=== PATIENT | male | born 1940 | race Caucasian/White ===

== ENCOUNTER 2020-05-10 08:33 | Inpatient (IN) | payer OTHER ==
[~2020-05-10] VITALS: Ht 177.8 cm; Wt 96.0 kg
[2020-05-10] VITALS (8 sets, daily range): BP systolic 108–146; BP diastolic 56–65
[~2020-05-10 08:33] MED LIST: ASPI81CH43 PO; CLON0.2D6 PO; FAMO20TA10 PO; FERR27TA2 PO; FURO1TAB33 PO; IPRA0.03; LEVA1NEB5 IN; LEVA1NEB5 NEB; LORA0.5T20 PO; LOSA25TA2 PO; LOSA50TA7 PO; LOVA20TA4 PO; MONT10TA23 PO; POTA10TA51 PO; PRED1PAK9 PO; RANO500T PO; THEO1CAP4 PO; TIOTCAP IN
[2020-05-10] MEDS ORDERED: PANTOPRAZOLE 40 MG/10 ML VIAL INJ IV ONE ×2 (09:45→19:30)
[2020-05-10 11:02] LABS: Basophils # (auto) 0 10 ^3/uL (0-0.2); Eosinophils # (auto) 0 10 ^3/uL (0-0.8); Eosinophils % (auto) 0.5 % (0.0-7.0); Lymphocytes # (auto) 0.5 10 ^3/uL (0.4-5.4); Monocytes # (auto) 0.5 10 ^3/uL (0-1.3); Platelet Count (auto) 276 10^3/uL (140-450)
[2020-05-10 11:05] LABS: Basophils % (auto) 0.5 % (0.0-2.0); Hematocrit 18.6 % (41.0-53.0); Lymphocytes % (auto) 7.7 % (10.0-50.0); Mean Corpuscular Hemoglobin 30.1 pg (28.0-32.0); Mean Corpuscular Hgb Conc. 30.9 g/dL (32.0-36.0); Mean Corpuscular Volume 97.3 fL (80.0-100.0); Monocytes % (auto) 7.9 % (0.0-12.0); Neutrophils # (auto) 5.4 10 ^3/uL (1.6-8.6); Neutrophils % (auto) 83.4 % (37.0-80.0); Nucleated Red Blood Cells % 1.3 %; Red Blood Cells 1.91 10^6/uL (4.5-5.90); Red Cell Distribution Width 19.6 % (11.8-14.3)
[2020-05-10 11:19] LABS: White Blood Cell 6.3 10^3/uL (4.4-10.8)
[2020-05-10 11:20] LABS: Hemoglobin 5.8 g/dL (13.5-17.5)
[2020-05-10 11:31] LABS: INR 0.99 (0.9-1.15); Partial Thromboplastin Time 28.3 sec (23.0-31.2)
[2020-05-10 11:36] LABS: Albumin 2.6 g/dL (3.4-5.0); Calcium 7.9 mg/dL (8.5-10.1); Magnesium 2.2 mg/dL (1.6-2.6)
[2020-05-10 11:49] LABS: BUN/Creatinine Ratio 22.9; Bilirubin, Total 0.2 mg/dL (0.2-1.0); Total Protein 5.1 g/dL (6.4-8.2)
[2020-05-10 13:37] LABS: Urine Bacteria NONE SEEN /hpf (None Seen); Urine Blood Negative /uL (Negative); Urine Hyaline Cast FEW /lpf (0 - 2); Urine Specific Gravity 1.017 (1.001-1.035); Urine WBC 2 /hpf (0 - 3)
[2020-05-10] MEDS ORDERED: NITROGLYCERIN 0.4 MG SL TAB SL PRN (18:00)
[2020-05-10] MEDS ORDERED: MORPHINE SULF INJ 2 MG/ML SYRINGE 1ML IV PRN ×6 (18:00→20:30)
[2020-05-10] MEDS ORDERED: LEVALBUTEROL HCL 1.25 MG/3 ML NEB NEB ONE (18:15)
[2020-05-10] MEDS ORDERED: IPRATROPIUM BROM 0.5 MG/2.5ML INH SOL NEB ONE (18:15)
[2020-05-10] MEDS ORDERED: IPRATROPIUM BROM 0.5 MG/2.5ML INH SOL NEB SCH ×3 (18:30→22:00)
[2020-05-10] MEDS ORDERED: POTASSIUM CHL 20MEQ/100ML 100 ML IV ONE ×2 (19:00→20:30)
[2020-05-10] MEDS ORDERED: LACTULOSE 20Gm/30ML SOLN PO PRN (19:00)
[2020-05-10] MEDS ORDERED: methylPREDNISolone SOD SUCC 125 MG/2 ML VL IV ONE (19:00)
[2020-05-10] MEDS ORDERED: ONDANSETRON HCL 4 MG/2 ML VIAL IV PRN ×2 (19:00→20:30)
[2020-05-10 19:06] LABS: Hematocrit 22.8 % (41.0-53.0); Hemoglobin 7.4 g/dL (13.5-17.5)
[2020-05-10] MEDS ORDERED: levoFLOXacin 500MG 100 ML IV ONE ×2 (19:30→20:30)
[2020-05-10] MEDS ORDERED: FUROSEMIDE 40 MG/4 ML VIAL IV ONE (19:30)
[2020-05-10] MEDS ORDERED: LEVALBUTEROL HCL 1.25 MG/3 ML NEB NEB SCH (22:00)
[2020-05-10] MEDS ORDERED: metroNIDAZOLE 500MG/100ML 100 ML IV SCH (22:00)
[2020-05-10] MEDS: PANTOPRAZOLE 40 MG/10 ML VIAL INJ IV SCH (22:00)
[2020-05-10] MEDS: metroNIDAZOLE 500MG/100ML 100 ML IV SCH (22:09)
[2020-05-10] MEDS: IPRATROPIUM BROM 0.5 MG/2.5ML INH SOL NEB SCH (22:13)
[2020-05-10] MEDS: LEVALBUTEROL HCL 1.25 MG/3 ML NEB NEB SCH (22:13)
[2020-05-11] MEDS ORDERED: LEVALBUTEROL HCL 1.25 MG/3 ML NEB NEB SCH
[2020-05-11] MEDS ORDERED: methylPREDNISolone SOD SUCC 40 MG/ML VL IV SCH
[2020-05-11] MEDS: methylPREDNISolone SOD SUCC 40 MG/ML VL IV SCH ×4 (00:10→17:36)
[2020-05-11 00:31] LABS: Hemoglobin 8.2 g/dL (13.5-17.5)
[2020-05-11 00:32] LABS: Hematocrit 25.4 % (41.0-53.0)
[2020-05-11] MEDS: metroNIDAZOLE 500MG/100ML 100 ML IV SCH ×3 (05:51→21:57)
[2020-05-11] MEDS: LEVALBUTEROL HCL 1.25 MG/3 ML NEB NEB SCH ×5 (06:00→23:01)
[2020-05-11] MEDS: IPRATROPIUM BROM 0.5 MG/2.5ML INH SOL NEB SCH ×5 (06:00→23:01)
[2020-05-11 07:19] LABS: Basophils # (auto) 0 10 ^3/uL (0-0.2); Basophils % (auto) 0.2 % (0.0-2.0); Eosinophils # (auto) 0 10 ^3/uL (0-0.8); Hemoglobin 7.7 g/dL (13.5-17.5); Lymphocytes # (auto) 0.2 10 ^3/uL (0.4-5.4); Mean Corpuscular Hemoglobin 30.4 pg (28.0-32.0); Monocytes # (auto) 0 10 ^3/uL (0-1.3); Red Blood Cells 2.55 10^6/uL (4.5-5.90)
[2020-05-11 07:23] LABS: Lymphocytes % (auto) 5.2 % (10.0-50.0); Mean Corpuscular Hgb Conc. 32.3 g/dL (32.0-36.0); Mean Corpuscular Volume 94.1 fL (80.0-100.0); Monocytes % (auto) 0.7 % (0.0-12.0); Neutrophils # (auto) 4.4 10 ^3/uL (1.6-8.6); Neutrophils % (auto) 93.9 % (37.0-80.0); Nucleated Red Blood Cells % 0.8 %; Platelet Count (auto) 260 10^3/uL (140-450); Red Cell Distribution Width 19.4 % (11.8-14.3); White Blood Cell 4.7 10^3/uL (4.4-10.8)
[2020-05-11 07:41] LABS: Potassium 4.5 mmol/L (3.5-5.1)
[2020-05-11 07:49] LABS: Albumin 2.6 g/dL (3.4-5.0); BUN/Creatinine Ratio 24.2; Bilirubin, Total 0.2 mg/dL (0.2-1.0); Total Protein 5.4 g/dL (6.4-8.2)
[2020-05-11] MEDS: levoFLOXacin 500MG 100 ML IV SCH (09:49)
[2020-05-11] MEDS: PANTOPRAZOLE 40 MG/10 ML VIAL INJ IV SCH ×2 (09:49→21:57)
[2020-05-11] MEDS ORDERED: levoFLOXacin 500MG 100 ML IV SCH (10:00)
[2020-05-11] MEDS ORDERED: PANTOPRAZOLE 40 MG/10 ML VIAL INJ IV SCH (10:00)
[2020-05-11 12:05] LABS: Hematocrit 23.7 % (41.0-53.0); Hemoglobin 7.6 g/dL (13.5-17.5)
[2020-05-11] MEDS ORDERED: FUROSEMIDE 40 MG/4 ML VIAL IV ONE (13:30)
[2020-05-11] MEDS ORDERED: LOSARTAN POTASSIUM 50 MG TAB PO ONE (13:45)
[2020-05-11] MEDS ORDERED: RANOLAZINE ER 500 MG TAB PO ONE (13:45)
[2020-05-11 16:00] VITALS: BP 135/65
[2020-05-11] MEDS: RANOLAZINE ER 500 MG TAB PO SCH (21:58)
[2020-05-11] MEDS: ATORVASTATIN 20 MG TAB PO SCH (21:58)
[2020-05-11] MEDS: MONTELUKAST SODIUM 10 MG TAB PO SCH (21:58)
[2020-05-11 22:00] VITALS: BP 132/61
[2020-05-12] VITALS (8 sets, daily range): BP systolic 122–140; BP diastolic 63–70
[2020-05-12] MEDS: methylPREDNISolone SOD SUCC 40 MG/ML VL IV SCH ×5 (00:14→23:23)
[2020-05-12] MEDS: NITROGLYCERIN 0.4 MG SL TAB SL PRN ×6 (00:22→19:42)
[2020-05-12] MEDS: metroNIDAZOLE 500MG/100ML 100 ML IV SCH ×3 (05:51→23:20)
[2020-05-12] MEDS: IPRATROPIUM BROM 0.5 MG/2.5ML INH SOL NEB SCH ×5 (06:38→22:30)
[2020-05-12] MEDS: LEVALBUTEROL HCL 1.25 MG/3 ML NEB NEB SCH ×5 (06:38→22:30)
[2020-05-12 07:19] LABS: Basophils # (auto) 0 10 ^3/uL (0-0.2); Eosinophils # (auto) 0 10 ^3/uL (0-0.8); Lymphocytes # (auto) 0.2 10 ^3/uL (0.4-5.4); Neutrophils # (auto) 4.3 10 ^3/uL (1.6-8.6); Nucleated Red Blood Cells % 0.2 %; White Blood Cell 4.7 10^3/uL (4.4-10.8)
[2020-05-12 07:21] LABS: Hematocrit 22.9 % (41.0-53.0); Hemoglobin 7.3 g/dL (13.5-17.5); Lymphocytes % (auto) 3.6 % (10.0-50.0); Mean Corpuscular Hemoglobin 30.2 pg (28.0-32.0); Mean Corpuscular Volume 94.1 fL (80.0-100.0); Monocytes # (auto) 0.3 10 ^3/uL (0-1.3); Monocytes % (auto) 5.5 % (0.0-12.0); Neutrophils % (auto) 90.9 % (37.0-80.0); Platelet Count (auto) 242 10^3/uL (140-450); Red Blood Cells 2.43 10^6/uL (4.5-5.90); Red Cell Distribution Width 19.4 % (11.8-14.3)
[2020-05-12] MEDS: FUROSEMIDE 40 MG/4 ML VIAL IV SCH (08:55)
[2020-05-12] MEDS: PANTOPRAZOLE 40 MG/10 ML VIAL INJ IV SCH ×2 (08:57→23:20)
[2020-05-12] MEDS: RANOLAZINE ER 500 MG TAB PO SCH ×2 (08:59→23:22)
[2020-05-12] MEDS: LOSARTAN POTASSIUM 50 MG TAB PO SCH (08:59)
[2020-05-12] MEDS: levoFLOXacin 500MG 100 ML IV SCH (09:00)
[2020-05-12] MEDS ORDERED: ALPRAZolam 0.25 MG TAB PO PRN (10:00)
[2020-05-12] MEDS: LORazepam 0.5 MG TAB PO PRN ×2 (10:21→19:40)
[2020-05-12] MEDS: ATORVASTATIN 20 MG TAB PO SCH (23:22)
[2020-05-12] MEDS: MONTELUKAST SODIUM 10 MG TAB PO SCH (23:23)
[2020-05-12] MEDS: LACTULOSE 20Gm/30ML SOLN PO PRN (23:24)
[2020-05-13 05:00] VITALS: BP 143/72
[2020-05-13] MEDS: IPRATROPIUM BROM 0.5 MG/2.5ML INH SOL NEB SCH ×5 (05:48→22:00)
[2020-05-13] MEDS: LEVALBUTEROL HCL 1.25 MG/3 ML NEB NEB SCH ×5 (05:48→22:00)
[2020-05-13 06:04] LABS: Basophils # (auto) 0 10 ^3/uL (0-0.2); Eosinophils # (auto) 0 10 ^3/uL (0-0.8); Hemoglobin 8.4 g/dL (13.5-17.5); Lymphocytes # (auto) 0.1 10 ^3/uL (0.4-5.4); Monocytes # (auto) 0.1 10 ^3/uL (0-1.3); Neutrophils # (auto) 3.2 10 ^3/uL (1.6-8.6); Nucleated Red Blood Cells % 0.2 %; White Blood Cell 3.4 10^3/uL (4.4-10.8)
[2020-05-13 06:07] LABS: Basophils % (auto) 0.1 % (0.0-2.0); Hematocrit 25.8 % (41.0-53.0); Lymphocytes % (auto) 3.5 % (10.0-50.0); Mean Corpuscular Hemoglobin 30.4 pg (28.0-32.0); Mean Corpuscular Hgb Conc. 32.4 g/dL (32.0-36.0); Mean Corpuscular Volume 93.8 fL (80.0-100.0); Monocytes % (auto) 1.9 % (0.0-12.0); Neutrophils % (auto) 94.5 % (37.0-80.0); Platelet Count (auto) 221 10^3/uL (140-450); Red Blood Cells 2.75 10^6/uL (4.5-5.90); Red Cell Distribution Width 17.6 % (11.8-14.3)
[2020-05-13] MEDS: methylPREDNISolone SOD SUCC 40 MG/ML VL IV SCH ×3 (06:14→23:00)
[2020-05-13] MEDS: metroNIDAZOLE 500MG/100ML 100 ML IV SCH ×3 (06:14→23:00)
[2020-05-13 08:00] VITALS: BP 141/76
[2020-05-13] MEDS: levoFLOXacin 500MG 100 ML IV SCH (10:56)
[2020-05-13] MEDS: PANTOPRAZOLE 40 MG/10 ML VIAL INJ IV SCH ×2 (10:56→23:00)
[2020-05-13] MEDS: FUROSEMIDE 40 MG/4 ML VIAL IV SCH (10:56)
[2020-05-13] MEDS: LOSARTAN POTASSIUM 50 MG TAB PO SCH (10:57)
[2020-05-13] MEDS: RANOLAZINE ER 500 MG TAB PO SCH ×2 (10:57→23:00)
[2020-05-13 11:55] VITALS: BP 155/78
[2020-05-13 16:00] VITALS: BP 150/80
[2020-05-13 22:00] VITALS: BP 150/74
[2020-05-13] MEDS: MONTELUKAST SODIUM 10 MG TAB PO SCH (23:00)
[2020-05-13] MEDS: ATORVASTATIN 20 MG TAB PO SCH (23:00)
[2020-05-14] VITALS (7 sets, daily range): BP systolic 135–160; BP diastolic 71–81
[2020-05-14] MEDS: metroNIDAZOLE 500MG/100ML 100 ML IV SCH ×3 (05:14→22:22)
[2020-05-14] MEDS: IPRATROPIUM BROM 0.5 MG/2.5ML INH SOL NEB SCH ×5 (06:14→22:16)
[2020-05-14] MEDS: LEVALBUTEROL HCL 1.25 MG/3 ML NEB NEB SCH ×5 (06:14→22:16)
[2020-05-14] MEDS: LORazepam 0.5 MG TAB PO PRN ×2 (06:25→22:24)
[2020-05-14 06:41] LABS: Basophils # (auto) 0 10 ^3/uL (0-0.2); Basophils % (auto) 0.5 % (0.0-2.0); Eosinophils # (auto) 0 10 ^3/uL (0-0.8); Hematocrit 27.3 % (41.0-53.0); Hemoglobin 8.9 g/dL (13.5-17.5); Lymphocytes # (auto) 0.2 10 ^3/uL (0.4-5.4); Lymphocytes % (auto) 4.2 % (10.0-50.0); Mean Corpuscular Hemoglobin 30.6 pg (28.0-32.0); Mean Corpuscular Hgb Conc. 32.6 g/dL (32.0-36.0); Mean Corpuscular Volume 93.9 fL (80.0-100.0); Monocytes # (auto) 0.2 10 ^3/uL (0-1.3); Monocytes % (auto) 3.9 % (0.0-12.0); Neutrophils % (auto) 91.4 % (37.0-80.0); Nucleated Red Blood Cells % 0.1 %; Platelet Count (auto) 246 10^3/uL (140-450); Red Blood Cells 2.91 10^6/uL (4.5-5.90); Red Cell Distribution Width 17.1 % (11.8-14.3); White Blood Cell 4.4 10^3/uL (4.4-10.8)
[2020-05-14] MEDS: methylPREDNISolone SOD SUCC 40 MG/ML VL IV SCH ×2 (10:29→22:23)
[2020-05-14] MEDS: FUROSEMIDE 40 MG/4 ML VIAL IV SCH (10:29)
[2020-05-14] MEDS: PANTOPRAZOLE 40 MG/10 ML VIAL INJ IV SCH ×2 (10:29→22:22)
[2020-05-14] MEDS: levoFLOXacin 500MG 100 ML IV SCH (10:29)
[2020-05-14] MEDS: RANOLAZINE ER 500 MG TAB PO SCH ×2 (10:30→22:23)
[2020-05-14] MEDS: LOSARTAN POTASSIUM 50 MG TAB PO SCH (10:30)
[2020-05-14] MEDS: ATORVASTATIN 20 MG TAB PO SCH (22:23)
[2020-05-14] MEDS: MONTELUKAST SODIUM 10 MG TAB PO SCH (22:23)
[2020-05-15 04:56] VITALS: BP 133/69
[2020-05-15] MEDS: metroNIDAZOLE 500MG/100ML 100 ML IV SCH ×3 (05:32→21:58)
[2020-05-15] MEDS: LEVALBUTEROL HCL 1.25 MG/3 ML NEB NEB SCH ×5 (06:26→22:30)
[2020-05-15] MEDS: IPRATROPIUM BROM 0.5 MG/2.5ML INH SOL NEB SCH ×5 (06:26→22:30)
[2020-05-15 06:59] LABS: Basophils # (auto) 0 10 ^3/uL (0-0.2); Eosinophils # (auto) 0 10 ^3/uL (0-0.8); Hematocrit 28.3 % (41.0-53.0); Hemoglobin 9.2 g/dL (13.5-17.5); Lymphocytes # (auto) 0.2 10 ^3/uL (0.4-5.4); Lymphocytes % (auto) 5.7 % (10.0-50.0); Mean Corpuscular Hgb Conc. 32.5 g/dL (32.0-36.0); Mean Corpuscular Volume 92.3 fL (80.0-100.0); Monocytes # (auto) 0.3 10 ^3/uL (0-1.3); Monocytes % (auto) 6.6 % (0.0-12.0); Neutrophils # (auto) 3.6 10 ^3/uL (1.6-8.6); Neutrophils % (auto) 87.7 % (37.0-80.0); Platelet Count (auto) 211 10^3/uL (140-450); Red Blood Cells 3.07 10^6/uL (4.5-5.90); Red Cell Distribution Width 16.8 % (11.8-14.3); White Blood Cell 4.1 10^3/uL (4.4-10.8)
[2020-05-15 07:18] LABS: Potassium 4.3 mmol/L (3.5-5.1)
[2020-05-15 07:24] LABS: BUN/Creatinine Ratio 15.4; Calcium 8.2 mg/dL (8.5-10.1); Magnesium 2.4 mg/dL (1.6-2.6)
[2020-05-15 09:00] VITALS: BP 152/73
[2020-05-15] MEDS: FUROSEMIDE 40 MG/4 ML VIAL IV SCH (10:21)
[2020-05-15] MEDS: PANTOPRAZOLE 40 MG/10 ML VIAL INJ IV SCH ×2 (10:21→21:58)
[2020-05-15] MEDS: levoFLOXacin 500MG 100 ML IV SCH (10:21)
[2020-05-15] MEDS: RANOLAZINE ER 500 MG TAB PO SCH ×2 (10:21→21:59)
[2020-05-15] MEDS: methylPREDNISolone SOD SUCC 40 MG/ML VL IV SCH ×2 (10:21→21:59)
[2020-05-15] MEDS: LOSARTAN POTASSIUM 50 MG TAB PO SCH (10:22)
[2020-05-15] MEDS: LACTULOSE 20Gm/30ML SOLN PO PRN (10:22)
[2020-05-15 12:50] VITALS: BP 140/74
[2020-05-15 17:00] VITALS: BP 148/76
[2020-05-15 20:00] VITALS: BP 151/75
[2020-05-15] MEDS: ATORVASTATIN 20 MG TAB PO SCH (21:59)
[2020-05-15] MEDS: MONTELUKAST SODIUM 10 MG TAB PO SCH (22:00)
[2020-05-15] MEDS: LORazepam 0.5 MG TAB PO PRN (22:19)
[2020-05-16 04:45] VITALS: BP 151/77
[2020-05-16] MEDS: metroNIDAZOLE 500MG/100ML 100 ML IV SCH ×3 (05:11→21:48)
[2020-05-16] MEDS: IPRATROPIUM BROM 0.5 MG/2.5ML INH SOL NEB SCH ×5 (07:35→22:18)
[2020-05-16] MEDS: LEVALBUTEROL HCL 1.25 MG/3 ML NEB NEB SCH ×5 (07:35→22:18)
[2020-05-16 08:21] LABS: Basophils # (auto) 0 10 ^3/uL (0-0.2); Basophils % (auto) 0.4 % (0.0-2.0); Eosinophils # (auto) 0 10 ^3/uL (0-0.8); Eosinophils % (auto) 0.6 % (0.0-7.0); Hematocrit 32.5 % (41.0-53.0); Hemoglobin 10.1 g/dL (13.5-17.5); Lymphocytes # (auto) 0.5 10 ^3/uL (0.4-5.4); Lymphocytes % (auto) 9.7 % (10.0-50.0); Mean Corpuscular Hemoglobin 29.4 pg (28.0-32.0); Mean Corpuscular Hgb Conc. 31.1 g/dL (32.0-36.0); Mean Corpuscular Volume 94.8 fL (80.0-100.0); Monocytes # (auto) 0.4 10 ^3/uL (0-1.3); Monocytes % (auto) 8.3 % (0.0-12.0); Neutrophils # (auto) 4.1 10 ^3/uL (1.6-8.6); Nucleated Red Blood Cells % 0.1 %; Platelet Count (auto) 239 10^3/uL (140-450); Red Blood Cells 3.43 10^6/uL (4.5-5.90); Red Cell Distribution Width 17.1 % (11.8-14.3); White Blood Cell 5.1 10^3/uL (4.4-10.8)
[2020-05-16 09:00] VITALS: BP 128/66
[2020-05-16] MEDS: PANTOPRAZOLE 40 MG/10 ML VIAL INJ IV SCH ×2 (10:09→21:48)
[2020-05-16] MEDS: methylPREDNISolone SOD SUCC 40 MG/ML VL IV SCH ×2 (10:09→21:48)
[2020-05-16] MEDS: levoFLOXacin 500MG 100 ML IV SCH (10:09)
[2020-05-16] MEDS: FUROSEMIDE 40 MG/4 ML VIAL IV SCH (10:09)
[2020-05-16] MEDS: LOSARTAN POTASSIUM 50 MG TAB PO SCH (10:10)
[2020-05-16] MEDS: RANOLAZINE ER 500 MG TAB PO SCH ×2 (10:11→21:49)
[2020-05-16 13:00] VITALS: BP 147/81
[2020-05-16 17:00] VITALS: BP 142/71
[2020-05-16 20:00] VITALS: BP 141/75
[2020-05-16 21:49] VITALS: BP 141/75
[2020-05-16] MEDS: MONTELUKAST SODIUM 10 MG TAB PO SCH (21:49)
[2020-05-16] MEDS: ATORVASTATIN 20 MG TAB PO SCH (21:49)
[2020-05-17] MEDS: LORazepam 0.5 MG TAB PO PRN ×2 (00:15→09:40)
[2020-05-17 04:54] VITALS: BP 120/58
[2020-05-17] MEDS: metroNIDAZOLE 500MG/100ML 100 ML IV SCH (05:50)
[2020-05-17] MEDS: IPRATROPIUM BROM 0.5 MG/2.5ML INH SOL NEB SCH ×3 (06:00→14:33)
[2020-05-17] MEDS: LEVALBUTEROL HCL 1.25 MG/3 ML NEB NEB SCH ×3 (06:00→14:33)
[2020-05-17 08:00] VITALS: BP 138/65
[2020-05-17 08:05] LABS: Basophils # (auto) 0 10 ^3/uL (0-0.2); Basophils % (auto) 0.5 % (0.0-2.0); Eosinophils # (auto) 0 10 ^3/uL (0-0.8); Hematocrit 30.4 % (41.0-53.0); Hemoglobin 9.8 g/dL (13.5-17.5); Lymphocytes # (auto) 0.3 10 ^3/uL (0.4-5.4); Lymphocytes % (auto) 7.9 % (10.0-50.0); Mean Corpuscular Hemoglobin 29.5 pg (28.0-32.0); Mean Corpuscular Hgb Conc. 32.2 g/dL (32.0-36.0); Mean Corpuscular Volume 91.8 fL (80.0-100.0); Monocytes # (auto) 0.3 10 ^3/uL (0-1.3); Monocytes % (auto) 6.6 % (0.0-12.0); Neutrophils # (auto) 3.5 10 ^3/uL (1.6-8.6); Nucleated Red Blood Cells % 0.1 %; Platelet Count (auto) 184 10^3/uL (140-450); Red Blood Cells 3.31 10^6/uL (4.5-5.90); Red Cell Distribution Width 17.3 % (11.8-14.3); White Blood Cell 4.2 10^3/uL (4.4-10.8)
[2020-05-17 09:00] VITALS: BP 138/65
[2020-05-17] MEDS: levoFLOXacin 500MG 100 ML IV SCH (09:38)
[2020-05-17] MEDS: PANTOPRAZOLE 40 MG/10 ML VIAL INJ IV SCH (09:38)
[2020-05-17] MEDS: FUROSEMIDE 40 MG/4 ML VIAL IV SCH (09:39)
[2020-05-17] MEDS: methylPREDNISolone SOD SUCC 40 MG/ML VL IV SCH (09:39)
[2020-05-17] MEDS: LOSARTAN POTASSIUM 50 MG TAB PO SCH (09:40)
[2020-05-17] MEDS: RANOLAZINE ER 500 MG TAB PO SCH (09:40)
[2020-05-17 13:00] VITALS: BP 132/78
[2020-05-17 13:25] VITALS: BP 132/78
[2020-06-18] MEDS ORDERED: ISOS30TA4 PO (11:32)
== END 2020-05-17 15:00 | disposition short-term general hospital (02) | DRG 377 ==
LOC: ER 08:33 → EDBD 08:33 → TELE 17:51 → TELE-CENTR 05-11 15:00
PROVIDERS: ADMIT Internal Medicine; ATTEND Internal Medicine Geriatric Medicine
PROC: 30230N1 Transfusion of Nonautologous Red Blood Cells into Peripheral Vein, Open Approach (ICD-10-PCS; principal; 2020-05-10)
DX: K92.1 Melena (principal); I21.4 Non-ST elevation (NSTEMI) myocardial infarction; E44.0 Moderate protein-calorie malnutrition; J44.1 Chronic obstructive pulmonary disease with (acute) exacerbation; J96.10 Chronic respiratory failure, unspecified whether with hypoxia or hypercapnia; D62 Acute posthemorrhagic anemia; I50.42 Chronic combined systolic (congestive) and diastolic (congestive) heart failure; E66.9 Obesity, unspecified; E78.5 Hyperlipidemia, unspecified; F41.9 Anxiety disorder, unspecified; Z20.822 Contact with and (suspected) exposure to COVID-19; K59.00 Constipation, unspecified; G47.33 Obstructive sleep apnea (adult) (pediatric); I11.0 Hypertensive heart disease with heart failure; I25.119 Atherosclerotic heart disease of native coronary artery with unspecified angina pectoris; I25.2 Old myocardial infarction; Z85.46 Personal history of malignant neoplasm of prostate; Z87.19 Personal history of other diseases of the digestive system; Z87.891 Personal history of nicotine dependence; Z95.5 Presence of coronary angioplasty implant and graft; Z87.11 Personal history of peptic ulcer disease; Z88.1 Allergy status to other antibiotic agents; Z88.5 Allergy status to narcotic agent; Z88.0 Allergy status to penicillin; Z88.8 Allergy status to other drugs, medicaments and biological substances; Z88.2 Allergy status to sulfonamides; Z90.49 Acquired absence of other specified parts of digestive tract; Z68.31 Body mass index [BMI] 31.0-31.9, adult
CPT/HCPCS: 36415; 36430; 71045; 74176; 80048; 80053; 81001; 82378; 83735; 83880; 84484; 85014; 85018; 85025; 85045; 85610; 85730; 86850; 86900; 86901; 86920; 87070; 87205; 87426; 93005; 93306; 94640; 96374; C9113; G0378; J1956; J3480; J3490

== ENCOUNTER 2020-06-15 15:04 | Inpatient (IN) | payer OTHER ==
[~2020-06-15] VITALS: Ht 167.6 cm; Wt 100.8 kg
[~2020-06-15 15:04] MED LIST changes: -CLON0.2D6 PO; -LEVA1NEB5 IN; -LORA0.5T20 PO
[2020-06-15] MEDS ORDERED: FUROSEMIDE 40 MG/4 ML VIAL IV ONE (15:30)
[2020-06-15] MEDS ORDERED: AMIODARONE 450mg/250ml AE 250 ML IV ONE (15:37)
[2020-06-15] MEDS ORDERED: AMIODARONE 450mg/250ml AE 250 ML IV SCH ×2 (15:45→21:45)
[2020-06-15 15:47] LABS: Basophils # (auto) 0 10 ^3/uL (0-0.2); Basophils % (auto) 0.6 % (0.0-2.0); Eosinophils # (auto) 0.2 10 ^3/uL (0-0.8); Hematocrit 33.9 % (41.0-53.0); Lymphocytes # (auto) 1.5 10 ^3/uL (0.4-5.4); Lymphocytes % (auto) 25.7 % (10.0-50.0); Mean Corpuscular Hemoglobin 28.5 pg (28.0-32.0); Mean Corpuscular Hgb Conc. 32.4 g/dL (32.0-36.0); Mean Corpuscular Volume 87.8 fL (80.0-100.0); Monocytes # (auto) 0.8 10 ^3/uL (0-1.3); Monocytes % (auto) 14.3 % (0.0-12.0); Neutrophils # (auto) 3.2 10 ^3/uL (1.6-8.6); Neutrophils % (auto) 56.4 % (37.0-80.0); Nucleated Red Blood Cells % 0.1 %; Platelet Count (auto) 399 10^3/uL (140-450); Red Blood Cells 3.86 10^6/uL (4.5-5.90); Red Cell Distribution Width 17.7 % (11.8-14.3); White Blood Cell 5.8 10^3/uL (4.4-10.8)
[2020-06-15 16:14] LABS: Albumin 2.6 g/dL (3.4-5.0); BUN/Creatinine Ratio 11.8; Calcium 8.7 mg/dL (8.5-10.1); Potassium 3.4 mmol/L (3.5-5.1)
[2020-06-15 16:19] LABS: Bilirubin, Total 0.4 mg/dL (0.2-1.0); Total Protein 6.7 g/dL (6.4-8.2)
[2020-06-15 16:56] LABS: INR 1.12 (0.9-1.15); Partial Thromboplastin Time 38.4 sec (23.0-31.2)
[2020-06-15 17:06] LABS: Urine Bacteria NONE SEEN /hpf (None Seen); Urine Blood 1+ /uL (Negative); Urine Hyaline Cast FEW /lpf (0 - 2); Urine Specific Gravity 1.011 (1.001-1.035); Urine WBC 4 /hpf (0 - 3)
[2020-06-15] MEDS ORDERED: POTASSIUM EFFERVESENT TAB 25 MEQ PO ONE (17:45)
[2020-06-15] MEDS ORDERED: dilTIAZem HCL 180MG ER CAP PO ONE (18:15)
[2020-06-15] MEDS ORDERED: NITROGLYCERIN 0.4 MG SL TAB SL PRN (18:15)
[2020-06-15] MEDS ORDERED: LEVALBUTEROL HCL 1.25 MG/3 ML NEB NEB SCH (18:15)
[2020-06-15] MEDS ORDERED: MORPHINE SULF INJ 2 MG/ML SYRINGE 1ML IV PRN (18:15)
[2020-06-15] MEDS: levoFLOXacin 500MG 100 ML IV SCH (18:54)
[2020-06-15] MEDS ORDERED: LEVALBUTEROL HCL 1.25 MG/3 ML NEB ONE (20:36)
[2020-06-15] MEDS: IPRATROPIUM BROM 0.5 MG/2.5ML INH SOL NEB SCH (20:36)
[2020-06-15] MEDS ORDERED: IPRATROPIUM BROM 0.5 MG/2.5ML INH SOL ONE (20:36)
[2020-06-15] MEDS: BUDESONIDE (INHALATION) 0.5 MG/2 ML NEB NEB SCH (20:36)
[2020-06-15] MEDS: LEVALBUTEROL HCL 1.25 MG/3 ML NEB NEB SCH (20:37)
[2020-06-15] MEDS: ONDANSETRON HCL 4 MG/2 ML VIAL IV PRN (20:43)
[2020-06-15] MEDS: LOSARTAN POTASSIUM 25 MG TAB PO SCH (21:50)
[2020-06-15] MEDS: FAMOTIDINE 20 MG TAB PO SCH (21:51)
[2020-06-15] MEDS: RANOLAZINE ER 500 MG TAB PO SCH (21:51)
[2020-06-16] VITALS (9 sets, daily range): BP systolic 102–124; BP diastolic 50–73
[2020-06-16] MEDS ORDERED: TEMAZEPAM 15 MG CAP PO ONE (02:00)
[2020-06-16] MEDS: IPRATROPIUM BROM 0.5 MG/2.5ML INH SOL NEB SCH ×3 (06:10→18:15)
[2020-06-16] MEDS: LEVALBUTEROL HCL 1.25 MG/3 ML NEB NEB SCH ×3 (06:11→18:15)
[2020-06-16] MEDS: BUDESONIDE (INHALATION) 0.5 MG/2 ML NEB NEB SCH ×2 (06:11→18:15)
[2020-06-16] MEDS: levoFLOXacin 500MG 100 ML IV SCH (09:16)
[2020-06-16] MEDS: FAMOTIDINE 20 MG TAB PO SCH (09:16)
[2020-06-16] MEDS: ASPirin 81 mg TAB PO SCH (09:16)
[2020-06-16] MEDS: ONDANSETRON HCL 4 MG/2 ML VIAL IV PRN ×2 (09:16→19:43)
[2020-06-16] MEDS: CLOPIDOGREL BISULFATE 75 MG TAB PO SCH (09:16)
[2020-06-16] MEDS: dilTIAZem HCL 180MG ER CAP PO SCH (09:19)
[2020-06-16 10:06] LABS: Basophils # (auto) 0.1 10 ^3/uL (0-0.2); Basophils % (auto) 1.3 % (0.0-2.0); Eosinophils # (auto) 0.2 10 ^3/uL (0-0.8); Eosinophils % (auto) 2.8 % (0.0-7.0); Hematocrit 30.2 % (41.0-53.0); Hemoglobin 9.7 g/dL (13.5-17.5); Lymphocytes # (auto) 1.4 10 ^3/uL (0.4-5.4); Lymphocytes % (auto) 26.5 % (10.0-50.0); Mean Corpuscular Hemoglobin 28.5 pg (28.0-32.0); Mean Corpuscular Hgb Conc. 32.3 g/dL (32.0-36.0); Mean Corpuscular Volume 88.4 fL (80.0-100.0); Monocytes # (auto) 0.8 10 ^3/uL (0-1.3); Monocytes % (auto) 15.7 % (0.0-12.0); Neutrophils # (auto) 2.9 10 ^3/uL (1.6-8.6); Neutrophils % (auto) 53.7 % (37.0-80.0); Nucleated Red Blood Cells % 0.1 %; Platelet Count (auto) 318 10^3/uL (140-450); Potassium 3.3 mmol/L (3.5-5.1); Red Blood Cells 3.42 10^6/uL (4.5-5.90); Red Cell Distribution Width 17.4 % (11.8-14.3); White Blood Cell 5.4 10^3/uL (4.4-10.8)
[2020-06-16 10:07] LABS: Albumin 2.3 g/dL (3.4-5.0); Calcium 8.7 mg/dL (8.5-10.1)
[2020-06-16 10:12] LABS: BUN/Creatinine Ratio 10.2; Bilirubin, Total 0.5 mg/dL (0.2-1.0); Total Protein 5.8 g/dL (6.4-8.2)
[2020-06-16] MEDS: RANOLAZINE ER 500 MG TAB PO SCH ×2 (10:32→21:53)
[2020-06-16] MEDS: MONTELUKAST SODIUM 10 MG TAB PO SCH (10:32)
[2020-06-16] MEDS ORDERED: POTASSIUM CHL 20 Meq TABLET PO ONE (10:45)
[2020-06-16] MEDS ORDERED: FUROSEMIDE 40 MG/4 ML VIAL IV ONE (10:45)
[2020-06-16] MEDS ORDERED: PANTOPRAZOLE 40 MG/10 ML VIAL INJ IV ONE (10:45)
[2020-06-16] MEDS ORDERED: POLYETHYLENE GLYCOL 17 GM PWDR PO PRN (13:45)
[2020-06-16] MEDS ORDERED: POLYETHYLENE GLYCOL 17 GM PWDR PO ONE (13:45)
[2020-06-16] MEDS ORDERED: ALLO100T PO (17:52)
[2020-06-16] MEDS ORDERED: LORazepam 0.5 MG TAB PO PRN (21:15)
[2020-06-16] MEDS ORDERED: LACTULOSE 20Gm/30ML SOLN PO PRN (21:15)
[2020-06-16] MEDS ORDERED: LACTULOSE 20Gm/30ML SOLN PO ONE (21:15)
[2020-06-16] MEDS: ATORVASTATIN 20 MG TAB PO SCH (21:53)
[2020-06-16] MEDS: LOSARTAN POTASSIUM 25 MG TAB PO SCH (21:53)
[2020-06-16] MEDS ORDERED: TEMAZEPAM 15 MG CAP PO PRN (22:00)
[2020-06-17] VITALS (32 sets, daily range): BP systolic 42–155; BP diastolic 25–107
[2020-06-17] MEDS: ONDANSETRON HCL 4 MG/2 ML VIAL IV PRN ×2 (02:36→08:17)
[2020-06-17] MEDS: MORPHINE SULF INJ 2 MG/ML SYRINGE 1ML IV PRN ×2 (05:42→14:41)
[2020-06-17 07:20] LABS: Basophils # (auto) 0.1 10 ^3/uL (0-0.2); Basophils % (auto) 0.5 % (0.0-2.0); Eosinophils # (auto) 0 10 ^3/uL (0-0.8); Eosinophils % (auto) 0.2 % (0.0-7.0); Hematocrit 36.3 % (41.0-53.0); Hemoglobin 11.7 g/dL (13.5-17.5); Lymphocytes # (auto) 1.2 10 ^3/uL (0.4-5.4); Lymphocytes % (auto) 11.7 % (10.0-50.0); Mean Corpuscular Hemoglobin 28.3 pg (28.0-32.0); Mean Corpuscular Hgb Conc. 32.3 g/dL (32.0-36.0); Mean Corpuscular Volume 87.5 fL (80.0-100.0); Monocytes # (auto) 0.7 10 ^3/uL (0-1.3); Monocytes % (auto) 6.9 % (0.0-12.0); Neutrophils # (auto) 8.2 10 ^3/uL (1.6-8.6); Neutrophils % (auto) 80.7 % (37.0-80.0); Nucleated Red Blood Cells % 0.2 %; Platelet Count (auto) 397 10^3/uL (140-450); Red Blood Cells 4.15 10^6/uL (4.5-5.90); Red Cell Distribution Width 17.6 % (11.8-14.3); White Blood Cell 10.2 10^3/uL (4.4-10.8)
[2020-06-17 07:36] LABS: INR 1.13 (0.9-1.15); Partial Thromboplastin Time 40.6 sec (23.0-31.2)
[2020-06-17 07:38] LABS: Potassium 4.1 mmol/L (3.5-5.1)
[2020-06-17 07:44] LABS: BUN/Creatinine Ratio 8.5; Calcium 9.7 mg/dL (8.5-10.1); Magnesium 1.8 mg/dL (1.6-2.6)
[2020-06-17] MEDS: IPRATROPIUM BROM 0.5 MG/2.5ML INH SOL NEB SCH ×3 (08:02→18:00)
[2020-06-17] MEDS: BUDESONIDE (INHALATION) 0.5 MG/2 ML NEB NEB SCH (08:03)
[2020-06-17] MEDS: LEVALBUTEROL HCL 1.25 MG/3 ML NEB NEB SCH ×3 (08:03→18:00)
[2020-06-17] MEDS: RANOLAZINE ER 500 MG TAB PO SCH ×2 (10:00→22:00)
[2020-06-17] MEDS: dilTIAZem HCL 180MG ER CAP PO SCH (10:00)
[2020-06-17] MEDS: MONTELUKAST SODIUM 10 MG TAB PO SCH (10:00)
[2020-06-17] MEDS: CLOPIDOGREL BISULFATE 75 MG TAB PO SCH (10:00)
[2020-06-17] MEDS ORDERED: FUROSEMIDE 40 MG/4 ML VIAL IV SCH (10:00)
[2020-06-17] MEDS: ASPirin 81 mg TAB PO SCH (10:00)
[2020-06-17] MEDS ORDERED: SODIUM CHLORIDE 0.9% 1,000 ML IV ONE ×2 (10:45→18:30)
[2020-06-17] MEDS ORDERED: SODIUM CHLORIDE 0.9% 1,000 ML IV SCH ×2 (10:45→11:50)
[2020-06-17] MEDS: levoFLOXacin 500MG 100 ML IV SCH (14:35)
[2020-06-17] MEDS: PANTOPRAZOLE 40 MG/10 ML VIAL INJ IV SCH (14:41)
[2020-06-17] MEDS ORDERED: VANCOMYCIN PER PHARMACY 0 MG IV SCH (16:45)
[2020-06-17] MEDS ORDERED: FUROSEMIDE 40 MG/4 ML VIAL IV ONE (17:00)
[2020-06-17] MEDS ORDERED: SUCCINYLCHOLINE CHLORIDE 20 MG/ML 10ML VIAL IV ONE (17:10)
[2020-06-17] MEDS ORDERED: ETOMIDATE (2MG/ML) 20ML VIAL IV ONE (17:10)
[2020-06-17] MEDS ORDERED: MIDAZOLAM HCL 1MG/1ML-2 ML VIAL ONE (17:16)
[2020-06-17] MEDS ORDERED: MIDAZOLAM DRIP 50 mg/50mL 50 ML IV ONE ×2 (17:18→17:19)
[2020-06-17 17:28] LABS: Basophils # (auto) 0.1 10 ^3/uL (0-0.2); Basophils % (auto) 0.4 % (0.0-2.0); Eosinophils # (auto) 0 10 ^3/uL (0-0.8); Hemoglobin 10.9 g/dL (13.5-17.5); Lymphocytes # (auto) 2.2 10 ^3/uL (0.4-5.4); Lymphocytes % (auto) 14.7 % (10.0-50.0); Mean Corpuscular Hemoglobin 28.4 pg (28.0-32.0); Mean Corpuscular Hgb Conc. 31.1 g/dL (32.0-36.0); Mean Corpuscular Volume 91.4 fL (80.0-100.0); Monocytes # (auto) 2.2 10 ^3/uL (0-1.3); Neutrophils # (auto) 10.4 10 ^3/uL (1.6-8.6); Neutrophils % (auto) 69.9 % (37.0-80.0); Nucleated Red Blood Cells % 0.1 %; Platelet Count (auto) 424 10^3/uL (140-450); Red Blood Cells 3.83 10^6/uL (4.5-5.90); Red Cell Distribution Width 17.8 % (11.8-14.3); White Blood Cell 14.8 10^3/uL (4.4-10.8)
[2020-06-17 17:56] LABS: Albumin 2.5 g/dL (3.4-5.0); Potassium 5.4 mmol/L (3.5-5.1)
[2020-06-17 17:59] LABS: BUN/Creatinine Ratio 7.7; Bilirubin, Total 0.5 mg/dL (0.2-1.0); Total Protein 6.6 g/dL (6.4-8.2)
[2020-06-17] MEDS ORDERED: VANCOMYCIN 1GM/250ML 250 ML IV ONE (18:00)
[2020-06-17] MEDS ORDERED: NOREPINEPHRINE 8 MG/250ML KIT 250 ML IV ONE (18:08)
[2020-06-17] MEDS ORDERED: PROPOFOL 100 ML IV SCH (18:15)
[2020-06-17] MEDS ORDERED: fentaNYL Drip 2500mCg/250mlNS 250 ML IV SCH ×2 (18:15→20:00)
[2020-06-17] MEDS ORDERED: BUMETANIDE 2.5mg/10ml (0.25 mg/ml) INJ IV ONE (18:30)
[2020-06-17] MEDS ORDERED: CALCIUM GLUC 1,000mg/50ml-NS 50 ML IV ONE (18:30)
[2020-06-17] MEDS ORDERED: SODIUM BICARBONATE 8.4 % INJ 50ML VIAL IV ONE (18:30)
[2020-06-17] MEDS ORDERED: DEXTROSE (50%) 50ML SYRG IV ONE (18:30)
[2020-06-17] MEDS ORDERED: ALBUMIN 25% 100 ML IV ONE (18:30)
[2020-06-17] MEDS: PHENYLEPHRINE IV 250 ML IV SCH (19:35)
[2020-06-17] MEDS ORDERED: PHENYLEPHRINE IV 250 ML IV ONE ×3 (19:38→23:40)
[2020-06-17] MEDS ORDERED: VASOPRESSIN 50 UNITS in D5W 5% 247.5 ML IV SCH (21:00)
[2020-06-17] MEDS: SODIUM CHLORIDE 0.9% 1,000 ML IV SCH (21:36)
[2020-06-17] MEDS: InsuLIN REG 1unit/0.01ml Soln (100units/ml) IV ONE (21:39)
[2020-06-17 21:40] LABS: Basophils # (auto) 0 10 ^3/uL (0-0.2); Basophils % (auto) 0.3 % (0.0-2.0); Eosinophils # (auto) 0 10 ^3/uL (0-0.8); Hemoglobin 10.7 g/dL (13.5-17.5); Lymphocytes # (auto) 1.1 10 ^3/uL (0.4-5.4); Lymphocytes % (auto) 7.3 % (10.0-50.0); Mean Corpuscular Hgb Conc. 31.6 g/dL (32.0-36.0); Mean Corpuscular Volume 88.7 fL (80.0-100.0); Monocytes % (auto) 7.1 % (0.0-12.0); Neutrophils # (auto) 12.5 10 ^3/uL (1.6-8.6); Neutrophils % (auto) 85.3 % (37.0-80.0); Nucleated Red Blood Cells % 0.2 %; Platelet Count (auto) 433 10^3/uL (140-450); Red Blood Cells 3.83 10^6/uL (4.5-5.90); Red Cell Distribution Width 17.3 % (11.8-14.3); White Blood Cell 14.7 10^3/uL (4.4-10.8)
[2020-06-17] MEDS: MIDAZOLAM DRIP 50 mg/50mL 50 ML IV SCH (21:45)
[2020-06-17 21:58] LABS: Lactic Acid w/Reflex 2.1 mmol/L (0.4-2.0)
[2020-06-17] MEDS: ATORVASTATIN 20 MG TAB PO SCH (22:00)
[2020-06-17 22:03] LABS: BUN/Creatinine Ratio 8.1
[2020-06-17] MEDS: NOREPINEPHRINE 8 MG/250ML KIT 250 ML IV SCH (23:10)
[2020-06-18] VITALS (104 sets, daily range): BP systolic 58–149; BP diastolic 36–69
[2020-06-18] MEDS: LEVALBUTEROL HCL 1.25 MG/3 ML NEB NEB SCH ×4 (00:25→18:31)
[2020-06-18] MEDS: BUDESONIDE (INHALATION) 0.5 MG/2 ML NEB NEB SCH ×3 (00:25→18:31)
[2020-06-18] MEDS: IPRATROPIUM BROM 0.5 MG/2.5ML INH SOL NEB SCH ×3 (00:25→18:31)
[2020-06-18] MEDS: InsuLIN REG 1unit/0.01ml Soln (100units/ml) IV ONE (00:26)
[2020-06-18] MEDS: SODIUM CHLORIDE 0.9% 1,000 ML IV SCH (03:24)
[2020-06-18 04:23] LABS: Basophils # (auto) 0 10 ^3/uL (0-0.2); Basophils % (auto) 0.3 % (0.0-2.0); Eosinophils # (auto) 0 10 ^3/uL (0-0.8); Hematocrit 31.2 % (41.0-53.0); Hemoglobin 9.9 g/dL (13.5-17.5); Lymphocytes # (auto) 0.6 10 ^3/uL (0.4-5.4); Lymphocytes % (auto) 4.1 % (10.0-50.0); Mean Corpuscular Hemoglobin 28.2 pg (28.0-32.0); Mean Corpuscular Hgb Conc. 31.7 g/dL (32.0-36.0); Mean Corpuscular Volume 89.1 fL (80.0-100.0); Monocytes # (auto) 1.2 10 ^3/uL (0-1.3); Monocytes % (auto) 8.8 % (0.0-12.0); Neutrophils # (auto) 11.8 10 ^3/uL (1.6-8.6); Neutrophils % (auto) 86.8 % (37.0-80.0); Nucleated Red Blood Cells % 0.1 %; Platelet Count (auto) 337 10^3/uL (140-450); Red Cell Distribution Width 17.9 % (11.8-14.3); White Blood Cell 13.6 10^3/uL (4.4-10.8)
[2020-06-18 04:52] LABS: BUN/Creatinine Ratio 8.1; Calcium 7.5 mg/dL (8.5-10.1); Magnesium 1.5 mg/dL (1.6-2.6); Potassium 4.1 mmol/L (3.5-5.1)
[2020-06-18] MEDS: PHENYLEPHRINE IV 250 ML IV SCH ×4 (05:31→13:28)
[2020-06-18] MEDS: NOREPINEPHRINE 8 MG/250ML KIT 250 ML IV SCH ×2 (07:45→11:35)
[2020-06-18] MEDS ORDERED: EPINEPHrine HCL 250 ML IV ONE (08:44)
[2020-06-18] MEDS: dilTIAZem HCL 180MG ER CAP PO SCH (10:00)
[2020-06-18] MEDS: RANOLAZINE ER 500 MG TAB PO SCH ×2 (10:00→22:00)
[2020-06-18] MEDS: EPINEPHrine HCL 250 ML IV SCH ×2 (10:22→14:31)
[2020-06-18] MEDS ORDERED: RANO500T3 PO (11:26)
[2020-06-18] MEDS ORDERED: FER325T PO (11:27)
[2020-06-18] MEDS ORDERED: IPR002IS HHN (11:30)
[2020-06-18] MEDS ORDERED: ISOS1TAB28 PO (11:32)
[2020-06-18] MEDS ORDERED: PANT40TA57 PO (11:32)
[2020-06-18] MEDS ORDERED: CLOP75TA28 PO (11:33)
[2020-06-18] MEDS ORDERED: NITR0.4S29 SL (11:34)
[2020-06-18] MEDS ORDERED: MOME1SPR2 (11:36)
[2020-06-18] MEDS ORDERED: LEVA1AER IN (11:37)
[2020-06-18] MEDS ORDERED: BUDE1AER4 IN (11:38)
[2020-06-18] MEDS ORDERED: LEVAAER IN (11:39)
[2020-06-18] MEDS: levoFLOXacin 500MG 100 ML IV SCH (11:43)
[2020-06-18] MEDS: PANTOPRAZOLE 40 MG/10 ML VIAL INJ IV SCH (11:43)
[2020-06-18] MEDS: ASPirin 81 mg TAB PO SCH (11:44)
[2020-06-18] MEDS: CLOPIDOGREL BISULFATE 75 MG TAB PO SCH (11:46)
[2020-06-18] MEDS ORDERED: LACT10SO3 PO (11:50)
[2020-06-18] MEDS: MAGNESIUM SULFATE 1GM/100ML 100 ML IV SCH ×2 (12:19→13:26)
[2020-06-18] MEDS: MIDAZOLAM DRIP 50 mg/50mL 50 ML IV SCH (13:26)
[2020-06-18] MEDS ORDERED: SODIUM BICARBONATE 8.4 % INJ 50ML VIAL IV ONE ×2 (14:00→21:00)
[2020-06-18] MEDS ORDERED: SODIUM BICARBONATE 8.4% INJ 50ML SYRINGE ONE (14:01)
[2020-06-18] MEDS: LINEZOLID 600MG/300ML 300 ML IV SCH (14:30)
[2020-06-18] MEDS ORDERED: EPINEPHrine HCL INJECTION 16 MG in D5W 5% 234 ML IV SCH (14:45)
[2020-06-18] MEDS: NOREPINEPHRINE BITARTRATE 32 MG in SODIUM CHL 0.9% 218 ML IV SCH (15:55)
[2020-06-18] MEDS: MEROPENEM 500MG IVPB 50 ML IV SCH (16:03)
[2020-06-18] MEDS: PHENYLEPHRINE INJ 80 MG in SODIUM CHL 0.9% 242 ML IV SCH (17:49)
[2020-06-18] MEDS: ATORVASTATIN 20 MG TAB PO SCH (22:00)
[2020-06-18 23:51] LABS: Eosinophils # (auto) 0 10 ^3/uL (0-0.8); Neutrophils # (auto) 18.1 10 ^3/uL (1.6-8.6); Nucleated Red Blood Cells % 0.1 %; Platelet Count (auto) 276 10^3/uL (140-450); Red Blood Cells 3.91 10^6/uL (4.5-5.90)
[2020-06-18 23:52] LABS: Basophils # (auto) 0 10 ^3/uL (0-0.2); Basophils % (auto) 0.1 % (0.0-2.0); Eosinophils % (auto) 0.1 % (0.0-7.0); Hematocrit 36.4 % (41.0-53.0); Lymphocytes # (auto) 0.8 10 ^3/uL (0.4-5.4); Lymphocytes % (auto) 3.8 % (10.0-50.0); Mean Corpuscular Hgb Conc. 30.1 g/dL (32.0-36.0); Mean Corpuscular Volume 93.1 fL (80.0-100.0); Monocytes % (auto) 5.2 % (0.0-12.0); Neutrophils % (auto) 90.8 % (37.0-80.0); White Blood Cell 19.9 10^3/uL (4.4-10.8)
[2020-06-19] VITALS (47 sets, daily range): BP systolic 33–155; BP diastolic 27–69
[2020-06-19 00:03] LABS: INR 1.85 (0.9-1.15)
[2020-06-19 00:13] LABS: BUN/Creatinine Ratio 9.5; Calcium 6.9 mg/dL (8.5-10.1)
[2020-06-19 00:16] LABS: Potassium 5.6 mmol/L (3.5-5.1)
[2020-06-19 00:17] LABS: Lactic Acid w/Reflex 11.6 mmol/L (0.4-2.0)
[2020-06-19] MEDS ORDERED: DEXTROSE 50% SYRINGE 50 ML IV ONE (00:27)
[2020-06-19] MEDS: LINEZOLID 600MG/300ML 300 ML IV SCH (01:00)
[2020-06-19] MEDS: MEROPENEM 500MG IVPB 50 ML IV SCH (03:00)
[2020-06-19] MEDS ORDERED: DEXTROSE (50%) 50ML SYRG IV PRN (03:15)
[2020-06-19] MEDS ORDERED: FUROSEMIDE 40 MG/4 ML VIAL IV ONE (03:15)
[2020-06-19] MEDS ORDERED: D5W/SOD CHLO 0.9% 1,000 ML IV SCH (03:15)
[2020-06-19] MEDS ORDERED: FUROSEMIDE 40 MG/4 ML VIAL ONE (03:21)
[2020-06-19] MEDS: BUDESONIDE (INHALATION) 0.5 MG/2 ML NEB NEB SCH (06:58)
[2020-06-19] MEDS: IPRATROPIUM BROM 0.5 MG/2.5ML INH SOL NEB SCH (07:00)
[2020-06-19] MEDS: LEVALBUTEROL HCL 1.25 MG/3 ML NEB NEB SCH (07:00)
[2020-06-19] MEDS ORDERED: SODIUM BICARBONATE 8.4% INJ 50ML SYRINGE ONE (07:44)
[2020-06-19 07:48] LABS: Albumin 1.8 g/dL (3.4-5.0); Calcium 6.4 mg/dL (8.5-10.1); Magnesium 2.2 mg/dL (1.6-2.6)
[2020-06-19 08:04] LABS: BUN/Creatinine Ratio 8.5; Bilirubin, Total 0.5 mg/dL (0.2-1.0); Potassium 5.9 mmol/L (3.5-5.1); Total Protein 4.6 g/dL (6.4-8.2)
[2020-06-19] MEDS ORDERED: FUROSEMIDE 20 MG/2 ML VIAL ONE (08:13)
[2020-06-19] MEDS: PHENYLEPHRINE INJ 80 MG in SODIUM CHL 0.9% 242 ML IV SCH (08:24)
[2020-06-19] MEDS: NOREPINEPHRINE BITARTRATE 32 MG in SODIUM CHL 0.9% 218 ML IV SCH (08:24)
[2020-06-19 08:35] LABS: Hematocrit 34.2 % (41.0-53.0); Mean Corpuscular Hemoglobin 28.2 pg (28.0-32.0); Mean Corpuscular Hgb Conc. 29.2 g/dL (32.0-36.0); Mean Corpuscular Volume 96.7 fL (80.0-100.0); Platelet Count (auto) 256 10^3/uL (140-450); Red Blood Cells 3.54 10^6/uL (4.5-5.90); Red Cell Distribution Width 19.1 % (11.8-14.3); White Blood Cell 24.1 10^3/uL (4.4-10.8)
[2020-06-19 08:41] LABS: Basophils % (manual) 0 (0.0-2.0); Blast Cells 0; Eosinophils % (manual) 0 (0-7); Myelocytes % 0; Promyelocytes % 0; Reactive Lymphocytes 0
[2020-06-19] MEDS ORDERED: LORazepam 2MG/ML-1ML VIAL ONE (10:04)
[2020-06-19 10:55] LABS: Band Neutrophils % (manual) 51; Lymphocytes % (manual) 4 (10.0-50.0); Metamyelocytes % 17; Monocytes % (manual) 4 (0-12)
== END 2020-06-19 16:09 | DRG 208 ==
LOC: ER 15:04 → EDBD 15:04 → TELE 18:11 → TELE-WESTW 06-16 05:04 → ICU WEST 06-17 17:49
PROVIDERS: ADMIT Nurse Practitioner Acute Care; ATTEND Internal Medicine Geriatric Medicine
PROC: 5A09357 Assistance with Respiratory Ventilation, Less than 24 Consecutive Hours, Continuous Positive Airway Pressure (ICD-10-PCS; 2020-06-16)
PROC: 02HV33Z Insertion of Infusion Device into Superior Vena Cava, Percutaneous Approach (ICD-10-PCS; principal; 2020-06-17)
PROC: 5A1945Z Respiratory Ventilation, 24-96 Consecutive Hours (ICD-10-PCS; 2020-06-17)
PROC: 0BH17EZ Insertion of Endotracheal Airway into Trachea, Via Natural or Artificial Opening (ICD-10-PCS; 2020-06-17)
PROC: B548ZZA Ultrasonography of Superior Vena Cava, Guidance (ICD-10-PCS; 2020-06-17)
PROC: 03HY32Z Insertion of Monitoring Device into Upper Artery, Percutaneous Approach (ICD-10-PCS; 2020-06-17)
PROC: 4A133B1 Monitoring of Arterial Pressure, Peripheral, Percutaneous Approach (ICD-10-PCS; 2020-06-17)
PROC: 4A133J1 Monitoring of Arterial Pulse, Peripheral, Percutaneous Approach (ICD-10-PCS; 2020-06-17)
DX: J96.21 Acute and chronic respiratory failure with hypoxia (principal); N17.0 Acute kidney failure with tubular necrosis; J44.1 Chronic obstructive pulmonary disease with (acute) exacerbation; K56.7 Ileus, unspecified; E44.0 Moderate protein-calorie malnutrition; I50.22 Chronic systolic (congestive) heart failure; I11.0 Hypertensive heart disease with heart failure; R57.1 Hypovolemic shock; E87.6 Hypokalemia; E78.5 Hyperlipidemia, unspecified; D72.829 Elevated white blood cell count, unspecified; E83.42 Hypomagnesemia; E87.5 Hyperkalemia; D64.9 Anemia, unspecified; I25.10 Atherosclerotic heart disease of native coronary artery without angina pectoris; Z20.822 Contact with and (suspected) exposure to COVID-19; Z90.49 Acquired absence of other specified parts of digestive tract; I25.2 Old myocardial infarction; Z68.35 Body mass index [BMI] 35.0-35.9, adult; Z88.0 Allergy status to penicillin; Z88.5 Allergy status to narcotic agent; I48.91 Unspecified atrial fibrillation; Z66 Do not resuscitate
CPT/HCPCS: 36415; 36600; 51702; 71045; 74018; 76700; 80048; 80053; 80061; 80202; 81001; 82805; 82962; 83605; 83735; 83880; 84484; 85007; 85025; 85027; 85379; 85610; 85730; 87040; 87070; 87077; 87081; 87086; 87186; 87205; 87426; 93005; 94002; 94003; 94640; 94660; 96365; 96366; 96375; 99291; C9113; G0378; J0171; J0330; J1956; J2185; J2250; J2405; J7042; J7060; P9047